=== PATIENT | male | born 1985 | race Caucasian/White ===

== ENCOUNTER 2016-09-12 21:26 | Emergency (ER) | payer OTHER ==
[~2016-09-12] VITALS: Ht 180.3 cm; Wt 70.3 kg
[2016-09-12 22:00] VITALS: BP 128/62
[2016-09-12] MEDS ORDERED: TdaP Vaccine 0.5ml Syr IM ONE (22:15)
[2016-09-12] MEDS ORDERED: Norco 5mg/325mg tab ORAL ONE (22:15)
[2016-09-12] MEDS ORDERED: HYDROmorphone 1mg/ml Carpuject ONE (23:26)
[2016-09-12] MEDS ORDERED: HYDROmorphone 1mg/ml Carpuject IM ONE (23:30)
[2016-09-12] MEDS ORDERED: Bacitracin Oint 15gm Tube TOPIC ONE (23:58)
[2016-09-13] MEDS ORDERED: HYDROCODON-ACE1 EA15 ORAL (00:25)
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
[2016-09-13 00:34] VITALS: BP 125/65
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
== END 2016-09-13 00:34 | disposition home or self-care (01) ==
LOC: EMR 22:06
DX: S01.01XA Laceration without foreign body of scalp, initial encounter (principal); S63.289A Dislocation of proximal interphalangeal joint of unspecified finger, initial encounter; S09.90XA Unspecified injury of head, initial encounter; Z23 Encounter for immunization; V18.4XXA Pedal cycle driver injured in noncollision transport accident in traffic accident, initial encounter; Y92.410 Unspecified street and highway as the place of occurrence of the external cause; Y99.8 Other external cause status
CPT/HCPCS: 12001; 26770; 70450; 73130; 90471; 90715; 96372; 99284; J1170

== ENCOUNTER 2016-09-19 14:52 | Emergency (ER) | payer MEDICAID, OTHER ==
[~2016-09-19] VITALS: Ht 177.8 cm; Wt 70.3 kg
[~2016-09-19 14:52] MED LIST: HYDROCODON-ACE1 EA15 ORAL
[2016-09-19] MEDS ORDERED: VIBRAMYCIN100 MG ORAL (16:39)
--- NOTE | 2016-09-19 16:51 | Diagnostic Imaging Report ---
Indications: PAIN Technique: Three views of the right knee Comparison: None Findings: No acute fractures. No dislocations. Joint spaces are preserved. No radiopaque foreign body. Normal mineralization. Impression: No acute process
[2016-09-19 16:55] VITALS: BP 124/82
--- NOTE | 2016-09-19 23:16 | Emergency Room Report ---
History of Present Illness General Chief Complaint: Pain Source: Patient (RAMÓN ALCANTAR) Present Illness HPI The patient is a 31-year-old male presenting with right knee pain which began one week prior. The patient states that he was hiking and a cactus struck the right knee. The patient states that he felt the needle entered the knee. Pain is now described as a 5/10 dull ache it does not radiate. Pain worse with touch. The patient denies any other symptoms including fever chills (RAMÓN ALCANTAR) Allergies: Coded Allergies: No Known Allergies (Unverified , 09/12/16) Patient History Past Medical History: see triage record Pertinent Family History: none Immunizations: UTD Reviewed Nursing Documentation: PMH: Agreed, PSxH: Agreed (RAMÓN ALCANTAR) Review of Systems All Other Systems: negative except mentioned in HPI (RAMÓN ALCANTAR) Physical Exam Vital Signs Date Time Temp Pulse Resp B/P Pulse Ox O2 Delivery O2 Flow Rate FiO2 09/19/16 15:14 97.9 81 15 124/82 95 Room Air Sp02 EP Interpretation: reviewed, normal General Appearance: no apparent distress, alert, GCS 15, non-toxic Head: normocephalic, atraumatic Eyes: bilateral eye PERRL, bilateral eye normal inspection Musculoskeletal: back normal, gait/station normal, normal range of motion, tender - TTP over anterior R knee Neurologic: alert, oriented x3, responsive, motor strength/tone normal, sensory intact, speech normal Psychiatric: judgement/insight normal, memory normal, mood/affect normal, no suicidal/homicidal ideation Reflexes: 3+ bicep (R), 3+ bicep (L), 3+ tricep (R), 3+ tricep (L), 3+ knee (R) , 3+ knee (L) Skin: normal turgor, other - R anterior knee is erythematous with mild edema Lymphatic: no adenopathy (RAMÓN ALCANTAR) Medical Decision Making PA Attestation Dr. Gordon is my supervising physician. Patient management was discussed with my supervising physician (RAMÓN ALCANTAR) Diagnostic Impression: Primary Impression: Cellulitis ER Course The patient is a 31-year-old male presenting with right knee pain Ddx considered include but not limited to sprain/strain, FB, fracture, contusion Physical exam: Vitals within normal limits. No apparent distress Right knee: There is tenderness to palpation over anterior knee. Mild erythema and edema. Full active range of motion. X-ray of the knee unremarkable. No foreign body seen. The patient will be discharged home with antibiotics and will followup with primary care doctor. ER precautions are given (RAMÓN ALCANTAR) ER Course Agree with PA-obtained, HPI, PE, Assessment/PLAN and their interpretation of imaging and rhythm strip. (TATY GORDON M.D.) Other X-Ray Diagnostic Results Other X-Ray Diagnostic Results : X-Ray Ordered: R knee Date: Sep 19, 2016 EP Interpretation: Yes Findings: no fractures, no dislocation, no soft tissue swelling Number of Views: 3 PA Scribe Text I am acting as scribe for my supervising physician. My supervising physician's interpretation of the R knee xrays are there are no fractures, dislocations or soft tissue swelling. (RAMÓN ALCANTAR) Last Vital Signs Date Time Temp Pulse Resp B/P Pulse Ox O2 Delivery O2 Flow Rate FiO2 09/19/16 16:55 81 15 124/82 95 Room Air 09/19/16 16:55 97.9 Status: improved (RAMÓN ALCANTAR) Disposition: HOME, SELF-CARE Condition: Improved Scripts Doxycycline Hyclate* (VIBRAMYCIN*) 100 Mg Capsule 100 MG ORAL EVERY 12 HOURS, #14 CAP 0 Refills Prov: RAMÓN ALCANTAR 09/19/16 Referrals: [facility],REFERRIN (PCP) Patient Instructions: Cellulitis Additional Instructions: I discussed my findings with the patient. All questions and concerns have been answered. Treatment and medication compliance have been addressed. I advised the patient that they need to follow up with PMD in 3-5 days. Return to ED if symptoms worsen, new symptoms arise, or if needed for any reason. Patient verbalized understanding of discharge instructions. RAMÓN ALCANTAR Sep 19, 2016 23:16 TATY GORDON M.D. Sep 22, 2016 10:00
== END 2016-09-19 16:55 | disposition home or self-care (01) ==
LOC: EMR 15:48
DX: M25.561 Pain in right knee (principal); L03.115 Cellulitis of right lower limb
CPT/HCPCS: 99283